=== PATIENT | male | born 1960 | race Caucasian/White ===

== ENCOUNTER 2020-07-27 09:08 | Emergency (ER) | payer MEDICAID, OTHER ==
[~2020-07-27] VITALS: Ht 177.8 cm; Wt 99.0 kg
[~2020-07-27 09:08] MED LIST: GLIP5TAB10 PO; INSU100V8 SQ; METF500T17 PO
[2020-07-27] MEDS ORDERED: ATOR-2 PO (09:33)
[2020-07-27] MEDS ORDERED: INSU100I34 SQ-INSULIN (09:33)
[2020-07-27] MEDS ORDERED: TAMS-11 PO (09:33)
--- NOTE | 2020-07-27 09:42 | NUR ---
PT PRESENTS TO ED WITH "ULCER" ON BOTTOM OF LEFT FOOT. 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 PRESENT WOUND OCCURRING X1 MONTH. PT WAS TOLD BY WOUND CARE X2 WEEKS AGO TO CHECK INTO ED FOR ASSESSMENT. PT REPORTS GOOD CONTROL OF BLOOD SUGAR, THIS MORNING BG OF 130.
[2020-07-27 09:57] LABS: BASOPHILS % (AUTO) 1 % (0-1); EOSINOPHILS % (AUTO) 5 % (1-7); LYMPHOCYTES % (AUTO) 26 % (22-44); MEAN CORPUSCULAR HEMOGLOBIN 30.5 pg (27.5-34.5); MEAN CORPUSCULAR HGB CONC 34.2 g/dL (33.2-36.2); MEAN PLATELET VOLUME 6.8 fL (7.4-10.4); MONOCYTES % (AUTO) 6 % (2-9); NEUTROPHILS % (AUTO) 62 % (42-75); PLATELET COUNT 263 x10^3/uL (130-400); RED BLOOD COUNT 5.65 x10^6/uL (4.38-5.82); RED CELL DISTRIBUTION WIDTH 14.2 % (9.4-14.8)
[2020-07-27 10:05] LABS: ALBUMIN 4.6 g/dL (3.4-5.0); ANION GAP 6 mmol/L (5-15); CALCIUM 9.6 mg/dL (8.5-10.1); CHLORIDE 105 mmol/L (98-107); CREATININE 1.28 mg/dL (0.7-1.3)
[2020-07-27] MEDS ORDERED: AMOXICILLIN/CLAV 875-125MG TABLET PO ONE (10:30)
[2020-07-27] MEDS ORDERED: AMOXICILLIN/CLAV 875-125MG TABLET ONE (10:41)
[2020-07-27 10:53] LABS: MD SCAN
[2020-07-27 10:58] LABS: HCT (SEDRATE) 50.4 % (39.2-51.8)
[2020-07-27 11:18] VITALS: BP 132/78
== END 2020-07-27 11:19 | disposition home or self-care (01) ==
LOC: ED 09:49
DX: L89.893 Pressure ulcer of other site, stage 3 (principal); E11.9 Type 2 diabetes mellitus without complications
CPT/HCPCS: 36415; 80048; 82040; 85025; 85651; 86140; 87070; 87205; 99284

== ENCOUNTER → 2020-08-03 | Outpatient (CLI) | payer MEDICAID ==
[~2020-08-03] MED LIST changes: +ATOR-2 PO; +INSU100I34 SQ-INSULIN; +TAMS-11 PO
== END | disposition home or self-care (01) ==
LOC: WOUND 08:58
PROVIDERS: ATTEND Internal Medicine
DX: E11.621 Type 2 diabetes mellitus with foot ulcer (principal); L97.522 Non-pressure chronic ulcer of other part of left foot with fat layer exposed; E11.622 Type 2 diabetes mellitus with other skin ulcer; L97.222 Non-pressure chronic ulcer of left calf with fat layer exposed; L84 Corns and callosities; E78.5 Hyperlipidemia, unspecified; N40.0 Benign prostatic hyperplasia without lower urinary tract symptoms; F17.200 Nicotine dependence, unspecified, uncomplicated; Z79.4 Long term (current) use of insulin; Z89.412 Acquired absence of left great toe
CPT/HCPCS: 11042; 99215

== ENCOUNTER 2020-08-12 16:14 | Emergency (ER) | payer MEDICAID ==
[~2020-08-12] VITALS: Ht 177.8 cm; Wt 100.0 kg
--- NOTE | 2020-08-12 16:39 | NUR ---
PATIENT WHEELED BACK FROM TRIAGE WITH CHIEF C/O LEFT-SIDED CHEST PAIN SINCE 1300. PER PATIENT PAIN IS INTERMITTENT, PATIENT ALSO REPORTS NUMBNESS IN LEFT HAND. DENIES SOB. CONNECTED TO GLOVE SEWER, VSS, NADN, CALL LIGHT WITHIN REACH.
--- NOTE | 2020-08-12 17:38 | NUR ---
ERMD AT BEDSIDE FOR EVALUATION.
[2020-08-12 17:54] LABS: BASOPHILS % (AUTO) 1 % (0-1); EOSINOPHILS % (AUTO) 4 % (1-7); LYMPHOCYTES % (AUTO) 26 % (22-44); MEAN CORPUSCULAR HEMOGLOBIN 30.6 pg (27.5-34.5); MEAN CORPUSCULAR HGB CONC 34.1 g/dL (33.2-36.2); MEAN PLATELET VOLUME 7.1 fL (7.4-10.4); MONOCYTES % (AUTO) 5 % (2-9); NEUTROPHILS % (AUTO) 64 % (42-75); PLATELET COUNT 270 x10^3/uL (130-400); RED BLOOD COUNT 5.38 x10^6/uL (4.38-5.82); RED CELL DISTRIBUTION WIDTH 14.4 % (9.4-14.8)
[2020-08-12 17:56] LABS: MD NO
[2020-08-12 18:07] LABS: ALBUMIN 3.9 g/dL (3.4-5.0); ANION GAP 6 mmol/L (5-15); CALCIUM 8.9 mg/dL (8.5-10.1); CHLORIDE 109 mmol/L (98-107)
[2020-08-12 18:11] LABS: CREATININE 1.25 mg/dL (0.7-1.3); TROPONIN I < 0.015 ng/mL (0.000-0.045)
--- NOTE | 2020-08-12 18:16 | NUR ---
PATIENT RESTING IN GURNEY, CONNECTED TO MONITORS, VSS, NADN, CALL LIGHT WITHIN REACH. PATIENT UP FOR RECHECK.
--- NOTE | 2020-08-12 19:00 | NUR ---
REPORT GIVEN TO TIFFANI SANTIZO AND TIFFANI BANDA FOR TRANSFER OF PATIENT CARE.
--- NOTE | 2020-08-12 19:14 | NUR ---
RECEIEVED REPORT FROM LAMONT NIXON. TRANSFER OF CARE
[2020-08-12 19:15] VITALS: BP 120/70
== END 2020-08-12 19:18 | disposition home or self-care (01) ==
LOC: ED 19:12
DX: R07.2 Precordial pain (principal); R20.2 Paresthesia of skin; E78.00 Pure hypercholesterolemia, unspecified; F17.200 Nicotine dependence, unspecified, uncomplicated
CPT/HCPCS: 36415; 71045; 80048; 82040; 83880; 84484; 85025; 93005; 99285

== ENCOUNTER → 2020-08-12 | Outpatient (CLI) | payer MEDICAID | END | disposition home or self-care (01) | LOC: WOUND 09:36 | PROVIDERS: ATTEND Internal Medicine | DX: E11.621 Type 2 diabetes mellitus with foot ulcer (principal); L97.521 Non-pressure chronic ulcer of other part of left foot limited to breakdown of skin; E11.622 Type 2 diabetes mellitus with other skin ulcer; L97.222 Non-pressure chronic ulcer of left calf with fat layer exposed; L84 Corns and callosities; E78.5 Hyperlipidemia, unspecified; N40.0 Benign prostatic hyperplasia without lower urinary tract symptoms; F17.200 Nicotine dependence, unspecified, uncomplicated; Z79.4 Long term (current) use of insulin; Z89.412 Acquired absence of left great toe; Z89.422 Acquired absence of other left toe(s) | CPT/HCPCS: 97597 ==

== ENCOUNTER → 2020-08-19 | Outpatient (CLI) | payer MEDICAID | END | disposition home or self-care (01) | LOC: WOUND 10:07 | PROVIDERS: ATTEND Internal Medicine | DX: E11.621 Type 2 diabetes mellitus with foot ulcer (principal); L97.522 Non-pressure chronic ulcer of other part of left foot with fat layer exposed; E11.622 Type 2 diabetes mellitus with other skin ulcer; L97.222 Non-pressure chronic ulcer of left calf with fat layer exposed; L84 Corns and callosities; E78.5 Hyperlipidemia, unspecified; N40.0 Benign prostatic hyperplasia without lower urinary tract symptoms; F17.200 Nicotine dependence, unspecified, uncomplicated; E78.00 Pure hypercholesterolemia, unspecified; Z79.4 Long term (current) use of insulin; Z89.412 Acquired absence of left great toe; Z89.422 Acquired absence of other left toe(s) | CPT/HCPCS: 97597 ==

== ENCOUNTER → 2020-09-02 | Outpatient (CLI) | payer MEDICAID | END | disposition home or self-care (01) | LOC: WOUND 08:30 | PROVIDERS: ATTEND Internal Medicine | DX: T87.89 Other complications of amputation stump (principal); E11.621 Type 2 diabetes mellitus with foot ulcer; L97.522 Non-pressure chronic ulcer of other part of left foot with fat layer exposed; E11.622 Type 2 diabetes mellitus with other skin ulcer; L97.222 Non-pressure chronic ulcer of left calf with fat layer exposed; L84 Corns and callosities; E78.5 Hyperlipidemia, unspecified; N40.0 Benign prostatic hyperplasia without lower urinary tract symptoms; F17.200 Nicotine dependence, unspecified, uncomplicated; E78.00 Pure hypercholesterolemia, unspecified; Z79.4 Long term (current) use of insulin; Y83.5 Amputation of limb(s) as the cause of abnormal reaction of the patient, or of later complication, without mention of misadventure at the time of the procedure | CPT/HCPCS: 11042 ==